=== PATIENT | female | born 1995 | race Caucasian/White ===

== ENCOUNTER 2018-11-14 16:20 | Emergency (ER) | payer MEDICAID ==
[2018-11-14 19:26] LABS: URINE BLOOD (Dip) POC Negative (NEGATIVE); URINE GLUCOSE (Dip) POC Negative (NEGATIVE); URINE KETONES (Dip) POC Negative (NEGATIVE); URINE LEUKOCYTE EST (Dip) POC Negative (NEGATIVE); URINE NITRITE (Dip) POC Negative (NEGATIVE); URINE TOTAL PROTEIN POC Negative (NEGATIVE)
[2018-11-14 19:26] LABS: URINE PH (Dip) POC 6.5 (5.0-8.5)
== END 2018-11-14 19:54 | disposition home or self-care (01) ==
LOC: FTE 16:20
DX: O20.0 Threatened abortion (principal); R10.2 Pelvic and perineal pain; Z3A.09 9 weeks gestation of pregnancy
CPT/HCPCS: 76801; 81003; 81025; 99284-25